=== PATIENT | male | born 1975 ===

== ENCOUNTER → 2016-12-22 | Outpatient (CLI) | payer OTHER ==
[2016-12-22 14:51] LABS: BASO % 0.6 %; BASO ABS # 0.04 K/uL (0-0.2); COMPLETE YES; EOS % 2.6 %; HEMATOCRIT 52.1 % (42-52); IG% 0.1 %; LYMPH % 31.4 %; LYMPH ABS # 2.21 K/uL (1.2-3.4); MEAN CELL VOLUME 96.8 fL (80-100); MEAN CORPUSCULAR HEMOGLOBIN 35.1 pg (25-34); MEAN CORPUSCULAR HGB CONC 36.3 g/dl (32-36); MEAN PLATELET VOLUME 10.4 fL (7.4-10.4); MONO % 11.6 %; NEUT % 53.7 %; PLATELET COUNT 209 K/uL (130-400); RED BLOOD COUNT 5.38 M/uL (4.7-6.1); WHITE BLOOD COUNT 7.04 K/uL (4.8-10.8)
[2016-12-22 14:56] LABS: INR 1.1 (0.9-1.1); PROTHROMBIN TIME (PATIENT) 11.5 SECONDS (9.0-12.0)
[2016-12-22 14:58] LABS: ALT/SGPT 109 U/L (12-78); AST/SGOT 76 U/L (15-37); BLOOD UREA NITROGEN 11 mg/dl (7-18); BUN/CREATININE RATIO 11.8 (10-20); CARBON DIOXIDE 30 mmol/L (21-32); CHLORIDE 101 mmol/L (98-107); CREATININE 0.95 mg/dl (0.60-1.40); GLUCOSE 90 mg/dl (70-99); POTASSIUM 3.8 mmol/L (3.5-5.1); SODIUM 139 mmol/L (136-145); URIC ACID 7.4 mg/dl (2.6-7.2)
[2016-12-22 15:07] LABS: ALKALINE PHOSPHATASE 71 U/L (45-117)
[2016-12-23 06:38] LABS: ESTIMATED AVERAGE GLUCOSE 94 mg/dl; HA1C FLAG Normal (Normal)
[2016-12-27 02:48] LABS: ANTI-CENTROMERE AB <1.0 NEG AI (<1.0 NEG); ANTI-SS-A <1.0 NEG AI (<1.0 NEG); ANTI-SS-B <1.0 NEG AI (<1.0 NEG); DNA ds CRITHIDIA NEGATIVE (NEGATIVE); LIVER FIBR APOLIPOPROTEIN A-1 232 mg/dL (94-176); LIVER FIBROS ALPHA-2-MACROGLOB 333 mg/dL (106-279); LIVER FIBROSIS GGT 206 U/L (3-90); MICROSOMAL AB 3 IU/ML (<9); NECROINFLAMMATION ACT GRADE A2; NECROINFLAMMATION ACT SCORE 0.55; Sm Antibody <1.0 NEG AI (<1.0 NEG); URCREATININE 36 MG/DL (>/= 20)
== END | disposition home or self-care (01) ==
LOC: C.LAB1850 13:22
PROVIDERS: ATTEND Internal Medicine Infectious Disease
DX: B18.2 Chronic viral hepatitis C (principal)